=== PATIENT | male | born 1930 | race Caucasian/White ===

== ENCOUNTER → 2017-02-06 | Outpatient (CLI) | payer OTHER | LOC: MMPC 10:00 | PROVIDERS: ATTEND Podiatrist Foot & Ankle Surgery | DX: M19.072 Primary osteoarthritis, left ankle and foot (principal); M19.171 Post-traumatic osteoarthritis, right ankle and foot; B35.1 Tinea unguium | CPT/HCPCS: 11720 ×2; 20600 ×2; 99202; G0463; J0702 ==